=== PATIENT | male | born 1980 | race Caucasian/White ===

== ENCOUNTER → 2018-01-04 15:46 | Outpatient (CLI) | payer OTHER, SELFPAY ==
--- NOTE | 2018-01-04 15:52 | RAD_ITS ---
STUDY: X-RAY - RIGHT KNEE REASON FOR EXAM: Male, 37 years old. Right knee pain. TECHNIQUE: 4 view(s) of the knee, 2 of which are labeled as weightbearing. COMPARISON: None. FINDINGS: Normal visualized distal femur. Normal visualized proximal tibia and fibula. Normal patella. There is no demonstrated destructive osseous lesion or fracture. Normal medial femorotibial compartment. Normal lateral femorotibial compartment. Normal patellofemoral articulation. Normal proximal tibiofibular articulation. There is no demonstrated joint effusion. The soft tissue structures are unremarkable. RAD/Knee 4 or More Views IMPRESSION: Normal x-ray examination of the right knee. Electronically Signed: Naseem Colvin MD at 19:55 EST , Service support ,
== END ==
PROVIDERS: Family Provider Family Medicine; PCP Family Medicine; Visit Provider Family Medicine
DX: M25.561 Pain in right knee (principal)
CPT/HCPCS: 73564

== ENCOUNTER → 2018-07-18 15:42 | Outpatient (CLI) | payer OTHER, SELFPAY ==
--- NOTE | 2018-07-18 15:55 | MRI_ITS ---
STUDY: MRI RIGHT KNEE REASON FOR EXAM: Male, 37 years old. Pain. TECHNIQUE: Standardized fat and water weighted pulse sequences were obtained in all 3 orthogonal planes. COMPARISON: X-ray January 04, 2018. FINDINGS: Normal medial meniscus. Normal hyaline cartilage of the medial femorotibial compartment. Normal medial femoral condyle and tibial plateau. Normal medial collateral ligamentous complex (MCL). Normal distal semimembranosus, gracilis and semitendinosus tendons. Normal lateral meniscus. Normal hyaline cartilage of the lateral femorotibial compartment. Normal lateral femoral condyle and tibial plateau. Normal proximal tibiofibular articulation. Normal lateral collateral (fibular) ligament. Normal popliteus tendon. Normal biceps femoris tendon. There is edema with swelling and loss of definition of the of the ACL fascicles, producing a celery stick appearance, with preservation of the continuity of fibers, consistent with mucoid cystic degeneration versus chronic partial tear. Normal posterior cruciate ligament (PCL). Normal congruent patellofemoral articulation. Normal hyaline cartilage of the patellofemoral compartment. Normal medial and lateral patellar retinaculum. Normal quadriceps tendon. Normal patellar tendon. Normal Hoffa's fat pad. There is a small volume joint effusion. The soft tissues are unremarkable. The otherwise visualized osseous structures are unremarkable. MRI/Lower Ext Joint Only (Routine) IMPRESSION: No meniscal tear. Mucoid cystic degeneration of the anterior cruciate ligament versus chronic partial tear. Electronically Signed: Klaus Hurst MD at 23:49 EDT , Service support ,
== END ==
PROVIDERS: Family Provider Family Medicine; PCP Family Medicine; Visit Provider Family Medicine
DX: M25.561 Pain in right knee (principal)
CPT/HCPCS: 73721

== ENCOUNTER 2018-09-13 08:30 | Outpatient (RCR) | payer OTHER, SELFPAY ==
--- NOTE | 2018-08-16 17:23 | HP.PTEVAL_ITS ---
Patient's Visit Information LILIANE CRUZ is a 37 year old M referred to Physical Therapy by Ottoniel Emmanuel with a diagnosis of Synovial cyst R knee. Date of Evaluation: 08/16/18 Physical Therapist: Anayeli Colunga - Visit Plan Frequency: 2x /Week Plan: 2X/ week for 4 weeks for R Quad/Ham strengthening, hip strength, squat mechanics with HEP and modalities for swelling. L Quad keeps balling up and spasming up since taking off for 2[employer] base 5 years ago and now just putting on his boot etc hurt.....try some foam rolling to the L Quad (pt has a foam roller at home as well). - Subjective Subjective: Pt has had pain back of knee for the last [address] Leone said the pt had a cyst and they tried to drain it and nothing came out. Hard to squat as it is hard to straighten it. A lot of pain to straighten it out and has to ease it out. Dr Emmanuel said that there is no cyst. He has been taking glucosamine and some arthritis meds. If he ices it seems to alleviate some of the pain. Wednesday was at [employer] and he was paying for it the rest of the day. RTD Sep 17. Stairs: He can do them depending on the day. Sometimes the pain will come and go. If he drives for awhile he will have increase knee pain. He does not want to be active because it swells and then he has to ice. He has pain and swelling with movment. If he sits too long he will have more stiffness. He reports that his R knee will get really hot and can feel the hot coming off of it and it will turn red..... - Pain R knee pain Pain Intensity (Out of 10): 3 - Objective Gait: walks with a normal gait pattern. R knee flexion AROM 130 degrees and extension 0 degrees. L knee AROM flexion 140 degrees and extension 0 degrees. R knee flex 4-/5 and L 4/5, R knee ext 4/5 and L 4/5, R hip abd B 4/5, R hip flex 4-/5 and L 4/5, B hip ext 4-/5. Tight B quads and HS ( increase posterior knee pain with SLR on the R). Palpation: tender along the posterior knee and pain with lachmans test on the R. Pt complained of L Quad occ spasms with increased pressure through the leg - Goals Goal 1:: I HEP Goal Time Frame: 4-6 Weeks Goal 2:: Increase R knee AROM to 140 degrees flexion Goal Time Frame: 4-6 Weeks Goal 3:: Be able to squat without pain Goal Time Frame: 4-6 Weeks Goal 4:: Increase LE strength by 1/2 muscle grade to support ACL ( at time of eval: R knee flex 4-/5 and L 4/5, R knee ext 4/5 and L 4/5, R hip abd B 4/5, R hip flex 4-/5 and L 4/5, B hip ext 4-/5). Goal Time Frame: 4-6 Weeks - Anticipated Interventions Patient/Client Instruction: Educate patient on: Condition, Plan of Care For the Purpose of:: To decrease pain, To decrease swelling/inflammation, To increase ROM, To improve nutrient delivery to tissue, To improve muscle performance and motor function, To improve ability to perform ADL's, To increase tolerance to activity/condition/position, To improve ability of physical actions for home/community/work/leisure, To improve gait and locomotor functions, To improve health of tissue, To decrease soft tissue restriction, To increase flexibility/ROM Therapeutic Exercise to Include: Strength training, Flexibilty training, Gait and locomotor training, Passive ROM, Active ROM For the Purpose of:: To decrease pain, To decrease swelling/inflammation, To increase ROM, To improve nutrient delivery to tissue, To improve muscle performance and motor function, To improve ability to perform ADL's, To increase tolerance to activity/condition/position, To improve gait and locomotor functions, To improve health of tissue, To decrease soft tissue restriction, To increase flexibility/ROM IF ES: Yes Cryotherapy (ice pack, ice massage): Yes Ultrasound (thermal/non thermal): Yes For the Purpose of:: To decrease pain, To decrease swelling/inflammation, To increase ROM, To improve nutrient delivery to tissue Thank you for the opportunity to evaluate your patient. For Medicare and Medicare HMO plans, please review the plan of care and approve it. It will need to be FAXED BACK to us at [phone] for Medicare purposes. Please let me know if there are questions or concerns regarding this plan of care. Physician Signature: Date:
--- NOTE | 2018-09-13 09:11 | HP.PTDCSUM ---
HP - PT D/C Summary It has been my pleasure to treat LILIANE CRUZ under orders from Ottoniel Emmanuel, for the diagnosis of Synovial cyst R knee for a total of 9 visit(s). Discharge Date: 09/13/18 Please see the following information for a summary of their discharge status. - Subjective Subjective: Pt reports that he has no pain. He has had no pain in awhile. He can squat without pain. - Pain R knee pain Pain Intensity (Out of 10): 0 - Overall Improvement % Improvement: 100 - Objective Objective/Function: LE MMT: R Hip flex B 4/5, hip abd 4+/5, Hip ext 4/5, B knee flex and ext 4/5. R knee flexion: AROM 0-135 degrees - Goals Goal 1:: I HEP Goal Progress: Goal Met Goal 2:: Increase R knee AROM to 140 degrees flexion Goal Progress: Progressing Goal 3:: Be able to squat without pain Goal Progress: Goal Met Goal 4:: Increase LE strength by 1/2 muscle grade to support ACL ( at time of eval: R knee flex 4-/5 and L 4/5, R knee ext 4/5 and L 4/5, R hip abd B 4/5, R hip flex 4-/5 and L 4/5, B hip ext 4-/5). - Plan Plan: DC PT to HEP - D/C Information Discharge Comments: DC to HEP If there are questions or concerns regarding this patient's physical therapy, please feel free to call me at [phone]. Thank you for the referral of this patient. Sincerely, Anayeli Colunga
== END 2018-09-13 15:09 | disposition home or self-care (01) ==
LOC: PT 08:30
PROVIDERS: Family Provider Family Medicine; PCP Family Medicine; Referring Provider Orthopaedic Surgery; Visit Provider Orthopaedic Surgery
DX: M71.21 Synovial cyst of popliteal space [Baker], right knee (principal)
CPT/HCPCS: 97110; 97161; 97530

== ENCOUNTER → 2019-09-07 10:12 | Outpatient (CLI) | payer OTHER, SELFPAY ==
[2018-10-31 12:48] VITALS: BMI 27.5
[2019-09-07 12:34] LABS: ALB/GLOB Ratio 1.1 RATIO (0.9-2.4); AST(SGOT) 27 U/L (15-37); Alanine Aminotransfer ALT/SGPT 44 U/L (16-61); Albumin, Serum 4.1 g/dL (3.2-5.0); Alkaline Phosphatase 66 U/L (45-117); Anion Gap 10 (5-15); BUN 15 mg/dL (7-18); BUN/Creat Ratio 15.3 RATIO (10-20); Calcium,Total 9.2 mg/dL (8.5-10.1); Chloride 104 mmol/L (98-107); Creatinine, Serum 0.98 mg/dL (0.70-1.30); EST Glomerular Filtration Rate 91 mL/min (>60); Est Glom Filt Rate - Afr Amer 110 mL/min (>60); GGTP 40 U/L (15-85); Globulin 3.6 g/dL (2.2-4.2); Glucose 87 mg/dL (74-106); Lipase 194 U/L (73-393); Protein, Total 7.7 g/dL (6.4-8.2); Sodium Level 141 mmol/L (136-145)
[2019-09-07 12:36] LABS: Erythrocyte Sedimentation Rate 9 mm/hr (0-15)
[2019-09-07 12:44] LABS: Absolute Neutrophil Count 4.7 X10^3/uL (2.0-7.7); Basophil# 0.04 X10^3/uL; Basophil% 0.5 % (0-1); Eosinophil# 0.15 X10^3/uL; Eosinophils% 1.9 % (0-5); Hematocrit 45.8 % (40-54); Hemoglobin 15.5 g/dL (13.0-16.5); Lymphocyte % 25.8 % (19-41); Mean Corp Hgb Conc 33.8 g/dL (32-36); Mean Corpuscular Hgb 29.7 pg (27.0-32.0); Mean Corpuscular Volume 87.7 fL (80-94); Mean Platelet Vol. 10.6 fl (6.2-12.0); Monocyte# 0.88 X10^3/uL; Monocyte% 11.3 % (0-10); NRBC Flagged by Analyzer 0 % (0-5); Neutrophil # 4.67 X10^3/uL (2.7-7.7); Neutrophil % 60.2 % (47-70); Platelet Count 237 K/mm3 (150-450); RBC Distribution Width SD 41.6 fl (35.1-43.9); Red Blood Count 5.22 M/mm3 (4.6-6.2); White Blood Count 7.8 K/mm3 (4.4-11.0)
== END ==
PROVIDERS: Family Medicine; Family Provider Family Medicine; PCP Family Medicine; Referring Provider Family Medicine; Visit Provider Family Medicine
DX: R10.11 Right upper quadrant pain (principal)
CPT/HCPCS: 36415; 80053; 82977; 83690; 85025; 85652

== ENCOUNTER → 2019-09-26 10:03 | Outpatient (CLI) | payer OTHER, SELFPAY ==
[2018-10-31 12:48] VITALS: BMI 27.5
[2019-09-21 10:52] VITALS: BMI 27.5
--- NOTE | 2019-09-26 10:04 | US_ITS ---
STUDY: ABDOMINAL ULTRASOUND REASON FOR EXAM: Male, 39 years old. Right-sided pain TECHNIQUE: Transabdominal ultrasound was performed with real-time and static napoles scale imaging. TECHNICAL QUALITY: Adequate. COMPARISON: None. FINDINGS: Liver: The liver measures 11.4 cm. There is mildly coarse echogenicity of the liver. The bile ducts are within normal limits. There is hepatic color flow. The direction of portal flow is hepatopetal. There is no demonstrated mass lesion. Gallbladder: Distended gallbladder. The gallbladder wall measures 3.5 mm. There is a negative sonographic Knowles's sign. There is no pericholecystic fluid. There are no gallstones. Common Bile Duct (C.B.D.): The common bile duct measures 3.8 mm. Pancreas: Normal size of the head and body of the pancreas. Limited visualization of the pancreatic tail. There is normal echogenicity of the pancreas. There is no demonstrated pancreatic mass or cyst. Spleen: Normal size of the spleen. The spleen measures 11.6 cm. Right Kidney: Normal size of the right kidney. The right kidney measures 11.3 x 5.3 x 4.7 cm. Normal renal cortex. The right cortex measures 1.8 cm. There is no demonstrated renal mass or cyst. There is no right hydronephrosis. Left Kidney: Normal size of the left kidney. The left kidney measures 11.4 x 4.4 x 5.3 cm. Normal renal cortex. The left cortex measures 1.6 cm. There is no demonstrated renal mass or cyst. There is no left hydronephrosis. Aorta: The visualized portion is normal. I.V.C.: The IVC is patent. There is no ascites. US/Abdomen Complete IMPRESSION: Mildly coarse echogenicity of the hepatic parenchyma. Borderline gallbladder wall thickness. No biliary dilatation. Electronically Signed: Silas Sales DO at 20:05 EST Tel [phone], Service support ,
== END ==
PROVIDERS: Family Provider Family Medicine; PCP Family Medicine; Referring Provider Family Medicine; Visit Provider Family Medicine
DX: R10.11 Right upper quadrant pain (principal)
CPT/HCPCS: 76700

== ENCOUNTER → 2019-10-17 10:24 | Outpatient (CLI) | payer OTHER, SELFPAY ==
[2019-10-10 14:47] VITALS: BMI 28.2
--- NOTE | 2019-10-17 10:27 | NM_ITS ---
CLINICAL: 39-year-old male with reported history of right upper quadrant abdominal pain. RADIONUCLIDE HEPATOBILIARY SCINTIGRAPHY COMPARISON: Abdominal ultrasound report 09/26/2019 FINDINGS: Following the intravenous administration of 5.1 mCi of 99m Tc Mebrofenin, hepatobiliary images reveal: 1. Relatively prompt and homogeneous radiopharmaceutical concentration is noted by a normal sized liver. No parenchymal defects are identified. 2. Gallbladder activity is identified at 15 minutes post radiopharmaceutical administration. 3. Small intestinal tract is not visualized during 60 minutes of pre-CCK sequential imaging. Small bowel activity is identified following the administration of cholecystokinin. 4. Washout of the radiopharmaceutical by the hepatic parenchyma appears qualitatively normal. Cholecystokinin (0.02 ug/kg) was administered intravenously over a 30-minute period. The post CCK gallbladder ejection fraction calculated at 21 minutes following Cholecystokinin administration was noted to be 76.0 % (normal greater than 35%). During 30 minutes of post CCK imaging, there is no scintigraphic evidence of reflux of the radiotracer into the common hepatic duct or refilling of the gallbladder. [place]/Hepatobilliary Img w/Pharm Int IMPRESSION: 1. NORMAL 99m Tc Mebrofenin hepatobiliary imaging examination with Cholecystokinin. A. A gallbladder ejection fraction calculated to be greater than 35% following the administration of Cholecystokinin makes the probability of functional hepatobiliary disease (gallbladder and/or sphincter of Oddi dyskinesia) and/or organic hepatobiliary disease (chronic acalculous cholecystitis and/or cystic duct syndrome) to be low. (Karthikeyan Izquierdo et al, Journal of Nuclear Medicine 32:1695, 1990). Electronically Signed: Mikey Samayoa DO at 23:20 EST Tel , Service support ,
== END ==
PROVIDERS: Family Provider Family Medicine; PCP Family Medicine; Referring Provider Surgery; Visit Provider Surgery
DX: R10.11 Right upper quadrant pain (principal)
CPT/HCPCS: 78227; A9537; J2805

== ENCOUNTER 2023-12-08 12:00 | Outpatient (RCR) | payer OTHER, SELFPAY ==
--- NOTE | 2023-09-22 13:25 | HP.PTEVAL_ITS ---
Patient's Visit Information Visit Information Visit Information: LILIANE CRUZ is a 43 year old M referred to Physical Therapy by MICHAEL SHARIF with a diagnosis of R shoulder labral repair, RTC repair, biceps tenodesis. DOS: 09/15/23. Date of Evaluation: 09/22/23 Physical Therapist: Arturo Clarke, МАРИЯT Visit Plan Frequency: 2x /Week Duration: 3 Months Plan: DOS: 09/15/23 1-2 weeks: pendulum. wrist ROM only 2-5 weeks: passive in scapular plane to 90deg, passive external to 0deg. No active ROM. DC sling at 5-6 weeks 5-12 weeks: gentle active and passive ROM, passive end range stretching at 8-10 weeks resistance added once ROM is near full ~10-12 weeks. Subjective Subjective: Pt. is here today for his initial evaluation with diagnosis of R labral repair, RTC repair. DOS: 09/15/23. Pt. reports initial injury occurred while shooting a basketball. Pt. arrives in sling, but reports being out of at home at times. Pt. is sleeping okay with sling at home. 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 He is to follow up with physician in a few weeks. pt. is hopefully to have a full recovery and get back to all of his work activities without limitations. Pain R shoulder: Pain Intensity (Out of 10): 2 Pain Intensity Range: 0 and 5 Objective Objective: POSTURE: Pt. has good posture in stance. Shoulder slight IR positioning. PALPATION: Pt. has good healing incision. No signs of infection. he does have a rash in his axillary region. NEURO: normal throughout. ROM: R shoulder: PROM: flexion 80deg, ER lacking 5 deg. Rest not testing. Elbow: full PROM. Balance/Special Test Scores Quick DASH Score: 75.0000 Goals Goal 1:: LTG: Pt. to be I with HEP. Goal Time Frame: 4-6 Weeks Goal 2:: STG: Pt. to have increased R shoulder PROM to 90deg flexion and 0 deg of ER. Goal Time Frame: 2-4 Weeks Goal 3:: LTG: Pt. to have full R shoulder PROM without increase in symptoms. Goal Time Frame: 6-8 Weeks Goal 4:: LTG: Pt. to sleep without increase in symptoms. Goal Time Frame: 2-4 Weeks Goal 5:: LTG: Pt. to have 5/5 strength throughout R shoulder. Goal Time Frame: 8-12 Weeks Rehabilitation Potential Physical Therapy Diagnosis: Pt. has signs and symptoms consistent with R shoulder labral repair, RTC repair, biceps tenodesis. DOS: 09/15/23. pt. has marked hypomobility, weakness, and increased pain. Pt. would benefit from PT to address the above limiations. Rehabilitation Potential: Good Anticipated Interventions Patient/Client Instruction: Educate patient on: Condition, Plan of Care, Risk Factors and Benefits of Fitness Program For the Purpose of:: To improve self management, To prevent re-injury, To improve ability to perform tasks related to life management and To improve tolerance to ADL's Therapeutic Exercise to Include: Strength training, Power training, Endurance training, Flexibilty training, Passive ROM, Active ROM and Scapular Strength/Stabilization For the Purpose of:: To decrease pain, To decrease swelling/inflammation, To increase ROM, To improve nutrient delivery to tissue, To improve health of tissue, To decrease soft tissue restriction and To increase flexibility/ROM Manual Therapy Techniques to Include: Mobilization, Passive ROM and Soft tissue mobilization For the Purpose of:: To decrease pain, To decrease swelling/inflammation, To increase ROM, To improve nutrient delivery to tissue and To increase oxygenation perfusion Cryotherapy (ice pack, ice massage): Yes For the Purpose of:: To decrease pain, To decrease swelling/inflammation, To increase ROM, To improve nutrient delivery to tissue, To increase oxygenation perfusion, To improve muscle performance and motor function, To improve health of tissue, To decrease soft tissue restriction and To increase flexibility/ROM Text: Thank you for the opportunity to evaluate your patient. For Medicare and Medicare HMO plans, please review the plan of care and approve it. It will need to be FAXED BACK to us at [phone] for Medicare purposes. For Medicare only, by signing this I certify the plan of care. Please let me know if there are questions or concerns regarding this plan of care. Physician Signature : Date:
--- NOTE | 2023-10-19 13:39 | HP.PTREVAL_ITS ---
Re-Evaluation Intro: MICHAEL SHARIF, It has been my pleasure to treat LILIANE CRUZ over the last 8 visits for R shoulder labral repair, RTC repair, biceps tenodesis. DOS: 09/15/23. Please see the progress note below for an update on the physical therapy plan of care! Subjective Subjective: Pt. reports overall doing well. Pt. pleased. He has been HEP compliant. No issues sleeping, occasional stiffness upon waking. pt. is back to work, desk mostly, without issues. Objective Objective/Function: PROM: flexion 165deg, abd 160deg, ER at 90deg of abd 80deg. AROM: flexion 140deg and 140deg. functional ER C6, functional IR T10. Progressed Liliane to further stretching this date and AAROM wand exercises. Pt. had a good tolerance to these exercises today. Pt. to stretch what feels comfortable, but painful end range. Pt. had good tolerance and good recall. Plan Plan Plan: Pt. to complete phase II AAROM and stretching at home for 2-3 weeks then back to PT to follow up. Balance/Gait/Functional tests Balance/Special Test Scores Quick DASH Score: 20.4525 Goals Goals Goal 1:: LTG: Pt. to be I with HEP. Goal Time Frame: 4-6 Weeks Goal Progress: Goal Met Goal 2:: STG: Pt. to have increased R shoulder PROM to 90deg flexion and 0 deg of ER. Goal Time Frame: 2-4 Weeks Goal Progress: Goal Met Goal 3:: LTG: Pt. to have full R shoulder PROM without increase in symptoms. Goal Time Frame: 6-8 Weeks Goal Progress: Progressing Goal 4:: LTG: Pt. to sleep without increase in symptoms. Goal Time Frame: 2-4 Weeks Goal Progress: Goal Met Goal 5:: LTG: Pt. to have 5/5 strength throughout R shoulder. Goal Time Frame: 8-12 Weeks Goal Progress: Progressing Anticipated Interventions Anticipated Interventions Patient/Client Instruction: Educate patient on: Condition, Plan of Care, Risk Factors and Benefits of Fitness Program For the Purpose of:: To improve self management, To prevent re-injury, To improve ability to perform tasks related to life management and To improve t olerance to ADL's Therapeutic Exercise to Include: Strength training, Power training, Endurance training, Flexibilty training, Passive ROM, Active ROM and Scapular Strength/Sta bilization For the Purpose of:: To decrease pain, To decrease swelling/inflammation, To increase ROM, To improve nutrient delivery to tissue, To improve health of tissue, To decrease soft tissue restriction and To increase flexibility/ROM Manual Therapy Techniques to Include: Mobilization, Passive ROM and Soft tissue mobilization For the Purpose of:: To decrease pain, To decrease swelling/inflammation, To increase ROM, To improve nutrient delivery to tissue and To increase oxygenation perfusion Cryotherapy (ice pack, ice massage): Yes For the Purpose of:: To decrease pain, To decrease swelling/inflammation, To increase ROM, To improve nutrient delivery to tissue, To increase oxygenation perfusion, To improve muscle performance and motor function, To improve health of tissue, To decrease soft tissue restriction and To increase flexibility/ROM Re-Evaluation Ending Re-evaluation ending: Please do not hesitate to contact me at [phone] by phone or if you have questions or concerns regarding this new plan of care! Sincerely, Arturo Clarke DPT
--- NOTE | 2023-12-08 13:49 | HP.PTREVAL ---
Re-Evaluation Intro: MICHAEL SHARIF, It has been my pleasure to treat LILIANE CRUZ over the last 11 visits for R shoulder labral repair, RTC repair, biceps tenodesis. DOS: 09/15/23. Please see the progress note below for an update on the physical therapy plan of care! Subjective Subjective: Pt. arrives today. He reports being not has consistent with his exercises as he would have like. Pt. reports having some soreness, more of stiffness in his R shoulder today, but did more at work. Objective Objective/Function: Pt. to continue with end range stretching as maintenance, but be more consistent with his strengthening. He is to continue with both deltoid, UT and RTC strengthening. Pt. consents. Pt. reports no issues with exercises this date. Pt. to be trial this for then next 3-4 weeks. ROM: full ROM without increase in symptoms. Slight tightness at end range AROM R shoulder flexion. MMT: 5/5 throughout R shoulder, except 5-/5 with shoulder abduction. Plan Plan Plan: Pt. is scheduled in 4 weeks. Pt. to to complete his exercises for phase III independently over this time frame. He is to follow up with physician just after this time. If he is feeling well he will cancel his PT appointment l, but if having any issues he can come in early. pt. consents to this plan. Balance/Gait/Functional tests Balance/Special Test Scores Quick DASH Score: 9.0900 Goals Goals Goal 1:: LTG: Pt. to be I with HEP. Goal Time Frame: 4-6 Weeks Goal Progress: Goal Met Goal 2:: STG: Pt. to have increased R shoulder PROM to 90deg flexion and 0 deg of ER. Goal Time Frame: 2-4 Weeks Goal Progress: Goal Met Goal 3:: LTG: Pt. to have full R shoulder PROM without increase in symptoms. Goal Time Frame: 6-8 Weeks Goal Progress: Goal Met Goal 4:: LTG: Pt. to sleep without increase in symptoms. Goal Time Frame: 2-4 Weeks Goal Progress: Goal Met Goal 5:: LTG: Pt. to have 5/5 strength throughout R shoulder. (pt. sitll limited with abduction, but rest of his strength is good) Goal Time Frame: 8-12 Weeks Goal Progress: Progressing Goal 6:: LTG: Pt. to complete all work activities without issues of pain or weakness. Goal Time Frame: 6-8 Weeks Goal Progress: Progressing Anticipated Interventions Anticipated Interventions Patient/Client Instruction: Educate patient on: Condition, Plan of Care, Risk Factors and Benefits of Fitness Program For the Purpose of:: To improve self management, To prevent re-injury, To improve ability to perform tasks related to life management and To improve tolerance to ADL's Therapeutic Exercise to Include: Strength training, Power training, Endurance training, Flexibilty training, Passive ROM, Active ROM and Scapular Strength/Stabilization For the Purpose of:: To decrease pain, To decrease swelling/inflammation, To increase ROM, To improve nutrient delivery to tissue, To improve health of tissue, To decrease soft tissue restriction and To increase flexibility/ROM Manual Therapy Techniques to Include: Mobilization, Passive ROM and Soft tissue mobilization For the Purpose of:: To decrease pain, To decrease swelling/inflammation, To increase ROM, To improve nutrient delivery to tissue and To increase oxygenation perfusion Cryotherapy (ice pack, ice massage): Yes For the Purpose of:: To decrease pain, To decrease swelling/inflammation, To increase ROM, To improve nutrient delivery to tissue, To increase oxygenation perfusion, To improve muscle performance and motor function, To improve health of tissue, To decrease soft tissue restriction and To increase flexibility/ROM Re-Evaluation Ending Re-evaluation ending: Please do not hesitate to contact me at [phone] by phone or if you have questions or concerns regarding this new plan of care! Sincerely, Arturo Clarke DPT
--- NOTE | 2024-02-10 12:20 | HP.PT.NRP ---
Patient Information Patient Information: LILIANE CRUZ was seen in my office for initial evaluation on 09/22/23. The following Plan of Care was established for this patient: POC Established Initial Frequency: 2x /Week Initial Duration: 3 Months Anticipated Interventions Patient/Client Instruction: Educate patient on: Condition, Plan of Care, Risk Factors and Benefits of Fitness Program For the Purpose of:: To improve self management, To prevent re-injury, To improve ability to perform tasks related to life management and To improve tolerance to ADL's Therapeutic Exercise to Include: Strength training, Power training, Endurance training, Flexibilty training, Passive ROM, Active ROM and Scapular Strength/Stabilization For the Purpose of:: To decrease pain, To decrease swelling/inflammation, To increase ROM, To improve nutrient delivery to tissue, To improve health of tissue, To decrease soft tissue restriction and To increase flexibility/ROM Manual Therapy Techniques to Include: Mobilization, Passive ROM and Soft tissue mobilization For the Purpose of:: To decrease pain, To decrease swelling/inflammation, To increase ROM, To improve nutrient delivery to tissue and To increase oxygenation perfusion Cryotherapy (ice pack, ice massage): Yes For the Purpose of:: To decrease pain, To decrease swelling/inflammation, To increase ROM, To improve nutrient delivery to tissue, To increase oxygenation perfusion, To improve muscle performance and motor function, To improve health of tissue, To decrease soft tissue restriction and To increase flexibility/ROM Last Seen Last Seen: This patient was last seen in our office 12/08/23. Pertinent comments regarding their Physical therapy will appear below: Pt. was doing well at his last visit. He was seen in PT after this shoulder surgery. Pt. has not been seen in several weeks and will be DC from PT at this point in time. At this point I will be discontinuing this patient from physical therapy. I would be happy to see this patient again in the future if found appropriate by the physician. Thank you! Arturo Clarke, DPT Balance/Gait/Functional tests Balance/Special Test Scores Quick DASH Score: [phone]
== END 2023-12-08 19:00 | disposition home or self-care (01) ==
LOC: PT 12:00
PROVIDERS: PCP Family Medicine
DX: M75.41 Impingement syndrome of right shoulder (principal); S43.431D Superior glenoid labrum lesion of right shoulder, subsequent encounter
CPT/HCPCS: 97110; 97161; 97164